=== PATIENT | female | born 1970 | race Two or more races ===

== ENCOUNTER → 2016-09-17 | Outpatient (CLI) | payer OTHER ==
[~2016-09-17] MED LIST: GABA600T PO; HYDR-3133 PO; INDO25CA PO; MECL-62 PO; NORT10CA PO; VALA500T PO
[2016-09-17 08:07] LABS: AUTOMATED NEUTROPHIL # 4.3 TH/MM3 (1.8-7.7); BASOPHIL % 0.8 % (0.0-2.0); EOSINOPHIL # 0.1 TH/MM3 (0-0.4); EOSINOPHIL % 1.1 % (0.0-4.0); HEMATOCRIT 38.6 % (35.0-46.0); HEMO FLAGS DIFF FINAL; LYMPH % 21.3 % (9.0-44.0); LYMPHOCYTE # 1.3 TH/MM3 (1.0-4.8); MEAN CORPUSCULAR HEMOGLOBIN 29.4 PG (27.0-34.0); MEAN CORPUSCULAR HGB CONC 33.8 % (32.0-36.0); MONO % 6.2 % (0.0-8.0); NEUT % 70.6 % (16.0-70.0); PLATELET COUNT 190 TH/MM3 (150-450); RED BLOOD COUNT 4.43 MIL/MM3 (4.00-5.30); RED CELL DISTRIBUTION WIDTH 14.5 % (11.6-17.2); WHITE BLOOD COUNT 6.1 TH/MM3 (4.0-11.0)
[2016-09-17 08:35] LABS: ALKALINE PHOSPHATASE 94 U/L (45-117); ALT (GPT) 185 U/L (10-53); ANION GAP 7 MEQ/L (5-15); AST (GOT) 122 U/L (15-37); BICARBONATE 28.6 MEQ/L (21.0-32.0); BLOOD UREA NITROGEN 17 MG/DL (7-18); CHLORIDE 103 MEQ/L (98-107); GLOMERULAR FILTRATION RATE 99 ML/MIN (>89); GLUCOSE,FASTING 88 MG/DL (74-99); POTASSIUM 3.4 MEQ/L (3.5-5.1); SODIUM (NA) 139 MEQ/L (136-145); TOTAL BILIRUBIN ADULT 0.4 MG/DL (0.2-1.0)
== END ==
LOC: CLAB 07:36
PROVIDERS: ATTEND Family Medicine
DX: M25.551 Pain in right hip (principal); R53.83 Other fatigue; H81.49 Vertigo of central origin, unspecified ear; H93.13 Tinnitus, bilateral; N83.201 Unspecified ovarian cyst, right side; R93.5 Abnormal findings on diagnostic imaging of other abdominal regions, including retroperitoneum; Z85.3 Personal history of malignant neoplasm of breast; Z68.22 Body mass index [BMI] 22.0-22.9, adult; Z13.220 Encounter for screening for lipoid disorders
CPT/HCPCS: 36415; 80053; 85025

== ENCOUNTER → 2016-09-20 | Outpatient (CLI) | payer OTHER ==
[2016-09-20 09:52] LABS: C. DIFF EPI 027 PRESUMPTIVE NEGATIVE (NEGATIVE); C. DIFF TOXIN PCR NEGATIVE (NEGATIVE)
[2016-09-21 13:43] LABS: FECAL FAT % FAT 16 % fat (< 20)
== END ==
LOC: CLAB 08:16
PROVIDERS: ATTEND Family Medicine
DX: O70.9 Perineal laceration during delivery, unspecified (principal); R10.13 Epigastric pain; K62.89 Other specified diseases of anus and rectum; R19.7 Diarrhea, unspecified; R15.9 Full incontinence of feces
CPT/HCPCS: 82710; 87338; 87493; 87506

== ENCOUNTER → 2016-10-22 | Outpatient (CLI) | payer OTHER ==
[2016-10-22 08:09] LABS: ALKALINE PHOSPHATASE 59 U/L (45-117); ALT (GPT) 16 U/L (10-53); ANION GAP 8 MEQ/L (5-15); AST (GOT) 10 U/L (15-37); BICARBONATE 25.1 MEQ/L (21.0-32.0); BLOOD UREA NITROGEN 17 MG/DL (7-18); CHLORIDE 105 MEQ/L (98-107); GLOMERULAR FILTRATION RATE 99 ML/MIN (>89); GLUCOSE,FASTING 90 MG/DL (74-99); POTASSIUM 3.8 MEQ/L (3.5-5.1); SODIUM (NA) 138 MEQ/L (136-145); TOTAL BILIRUBIN ADULT 0.3 MG/DL (0.2-1.0)
== END ==
LOC: CLAB 07:23
PROVIDERS: ATTEND Family Medicine
DX: R74.0 Nonspecific elevation of levels of transaminase and lactic acid dehydrogenase [LDH] (principal)
CPT/HCPCS: 36415; 80053

== ENCOUNTER → 2017-05-06 | Outpatient (CLI) | payer OTHER ==
[~2017-05-06] MED LIST changes: +ESTR42.5V VAGINAL; -HYDR-3133 PO; -INDO25CA PO; -NORT10CA PO
== END ==
LOC: CLAB 06:54
PROVIDERS: ATTEND Family Medicine
DX: R23.8 Other skin changes (principal)
CPT/HCPCS: 36415

== ENCOUNTER → 2017-12-20 | Outpatient (CLI) | payer OTHER ==
[~2017-12-20] MED LIST changes: +POTA10PO PO
[2017-12-20 14:01] LABS: BICARBONATE 27.5 MEQ/L (21.0-32.0); CALCIUM 8.8 MG/DL (8.5-10.1); CREATININE 0.64 MG/DL (0.50-1.00)
== END ==
LOC: CLAB 11-20 07:09
PROVIDERS: ATTEND Nurse Practitioner Family
DX: E87.6 Hypokalemia (principal)
CPT/HCPCS: 36415; 80048

== ENCOUNTER → 2017-12-30 | Outpatient (CLI) | payer OTHER ==
[2017-12-30 13:46] LABS: BICARBONATE 28.5 MEQ/L (21.0-32.0); CALCIUM 8.7 MG/DL (8.5-10.1); CREATININE 0.64 MG/DL (0.50-1.00)
== END ==
LOC: CLAB 13:05
PROVIDERS: ATTEND Family Medicine
DX: E87.6 Hypokalemia (principal)
CPT/HCPCS: 36415; 80048

== ENCOUNTER 2018-01-20 06:14 | Observation (INO) | payer OTHER ==
[2018-01-20] VITALS (9 sets, daily range): BP systolic 113–130; BP diastolic 61–86; PULSE 79–105; RESP 16–20; TEMP 98.1–98.8; O2SAT 97–100
[~2018-01-20] VITALS: Ht 157.5 cm; Wt 60.0 kg
[2018-01-20] MEDS ORDERED: POTA-163 PO (06:37)
[2018-01-20] MEDS ORDERED: MAGN200T PO (06:37)
[2018-01-20] MEDS ORDERED: ASPIRIN 81 MG CHEW TAB CHEW ONE (06:45)
[2018-01-20] MEDS ORDERED: SODIUM CHLORID 0.9% 500 ML INJ 500 ML IV ONE (06:45)
[2018-01-20] MEDS ORDERED: NITROGLYCERIN 0.4 MG SL 25 TABS/BTL SL ONE (06:45)
--- NOTE | 2018-01-20 06:45 | PD ---
HPI Chief Complaint: Chest Pain Time Seen by Provider: 06:34 Travel History International Travel<30 days: No Contact w/Intl Traveler<30days: No Traveled to known affect area: No History of Present Illness HPI The patient is a 47 year old female who presents to the [facility] emergency department with a history of a sensation of palpitations recurred again prior to arrival. The patient reports that she has a sensation of her heart skipping beats and beating fast. She reports having tingling sensations in her face. She reports having a breath. The patient was admitted to the hospital under the [facility] hospitalist service related to lightheaded sensation with similar symptoms on December 08. The patient was discharged home with a Holter monitor and follow-up with the mineral engineer. The patient had a normal TSH at that time. The patient had hypokalemia with a potassium of 2.9 and a magnesium of 1.7. The patient reports that her potassium was last checked a week ago and 3.3. She reports that she is on a potassium and magnesium supplement. She denies taking any aspirin daily. She did see a mineral engineer on Saturday and had an echo done. She reports that she is scheduled for a stress test later this week. She denies having any fevers or chills, cough or congestion, neck pain, abdominal pain, vomiting, diarrhea, urinary symptoms, or other neurologic symptoms. [facility] Past Medical History Narrative Medical The patient's past medical history is significant for breast cancer diagnosed in 2012 status post left mastectomy and chemotherapy, history of sciatica. Autoimmune Disease: No Blood Disorders: No Anxiety: No Depression: No Cancer: Yes Cardiovascular Problems: Yes (murmur) High Cholesterol: No Chemotherapy: Yes (LEFT BREAST CA) Diabetes: No Diminished Hearing: No Endocrine: No Genitourinary: No Headaches: Yes Immune Disorder: No Musculoskeletal: No Neurologic: Yes Psychiatric: No Reproductive: No Respiratory: No Radiation Therapy: No Thyroid Disease: No ?: Not Past Surgical History Narrative Surgical Past surgical history is significant for a tonsillectomy, bilateral tubal ligation, left mastectomy, cholecystectomy Abdominal Surgery: Yes (nancy) AICD: No Arteriovenous Shunt: No Gynecologic Surgery: Yes Insulin Pump: No Joint Replacement: No Mastectomy: Yes (LEFT) Oral Surgery: Yes Pacemaker: No Other Surgery: Yes (TONSILLECTOMY LAPAROSCOPIC TUBAL LIGATION) Social History Alcohol Use: No Tobacco Use: No Substance Use: No Allergies-Medications (Allergen,Severity, Reaction): Coded Allergies: amitriptyline (Verified Adverse Reaction, Intermediate, 01/20/18) Elevated Transaminases Reported Meds & Prescriptions Reported Meds & Active Scripts Active Estrace Vaginal (Estradiol) 0.01% Cream 1 Gm VAGINAL HS Reported Magnesium 200 Mg Tab 200 Mg PO DAILY Potassium Chloride ER (Potassium Chloride) 20 Meq Tab 20 Meq PO BID Valacyclovir (Valacyclovir HCl) 500 Mg Tab 500 Mg PO BID Gabapentin 600 Mg Tab 600 Mg PO HS Meclizine (Meclizine HCl) 25 Mg Tab 25 Mg PO TID PRN Review of Systems Except as stated in HPI: all other systems reviewed are Neg General / Constitutional: No: Fever Eyes: No: Visual changes HENT: No: Headaches, Congestion Cardiovascular: Positive: Chest Pain or Discomfort, Palpitations, Irregular Rhythm, Tachycardia, Dyspnea on exertion Respiratory: Positive: Shortness of Breath, No: Cough Gastrointestinal: No: Abdominal Pain Genitourinary: No: Dysuria Musculoskeletal: No: Pain Skin: No Rash Neurologic: No: Weakness Psychiatric: No: Depression Endocrine: No: Polydipsia Hematologic/Lymphatic: No: Easy Bruising Physical Exam Narrative General: The patient is a well-developed well-nourished female, anxious appearing on examination, hyperventilating. Head and Neck exam: Head is normocephalic atraumatic. Eyes: EOMI, pupils are equal round and reactive to light. Nose: Midline septum with pink mucous membranes Mouth: Dentition unremarkable. Moist mucus membranes. Posterior oropharynx is not erythematous. No tonsillar hypertrophy. Uvula midline. Airway patent. Neck: No palpable lymphadenopathy. No nuchal rigidity. No thyromegaly. Cardiovascular: Sinus tachycardia in the 1 teens without murmurs, gallops, or rubs. No pulse deficit to the extremities on simultaneous auscultation and palpation of her radial artery. Lungs: Clear to auscultation bilaterally. No wheezes, rhonchi, or rales. Abdomen: Soft, without tenderness to palpation in all 4 quadrants of the abdomen. No guarding, rebound, or rigidity. Normal bowel sounds are audible. No tenderness on palpation of McBurney's point. Negative Riley sign. Extremities: No clubbing, cyanosis, or edema. 2+ pulses in all 4 extremities. No calf tenderness on palpation. Back: No costovertebral angle tenderness to palpation. Neurologic Exam: Grossly nonfocal. Skin Exam: No rash noted. Intact skin that is warm and dry. Data Data Last Documented VS Vital Signs Date Time Temp Pulse Resp B/P (MAP) Pulse Ox O2 Delivery O2 Flow Rate FiO2 01/20/18 06:38 100 Room Air 01/20/18 06:24 98.8 105 20 Orders Orders Electrocardiogram (01/20/18 06:35) Complete Blood Count With Diff (01/20/18 06:35) Comprehensive Metabolic Panel (01/20/18 06:35) Creatine Kinase (Cpk) (01/20/18 06:35) Ckmb (Isoenzyme) Profile (01/20/18 06:35) Troponin I (01/20/18 06:35) B-Type Natriuretic Peptide (01/20/18 06:35) Prothrombin Time / Inr (Pt) (01/20/18 06:35) Act Partial Throm Time (Ptt) (01/20/18 06:35) Lipase (01/20/18 06:35) Magnesium (Mg) (01/20/18 06:35) Chest, Single Ap (01/20/18 06:35) Iv Access Insert/Monitor (01/20/18 06:35) Ecg Monitoring (01/20/18 06:35) Oximetry (01/20/18 06:35) Ed Urine Pregnancytest Poc (01/20/18 06:35) Aspirin Chew (Aspirin Chew) (01/20/18 06:45) Sodium Chlorid 0.9% 500 Ml Inj (Ns 500 M (01/20/18 06:45) Nitroglycerin Sl (Nitrostat Sl) (01/20/18 06:45) Labs Laboratory Tests Test 01/20/18 06:41 [facility] Medical Decision Making Medical Screen Exam Complete: Yes Emergency Medical Condition: Yes Medical Record Reviewed: Yes Differential Diagnosis Acute coronary syndrome, versus anxiety electrolyte derangements Narrative Course During the course of the patient's emergency department visit, the patient's history, examination, and differential diagnosis were reviewed with the patient. The patient was placed on a site monitor with oximetry and frequent blood pressure monitoring. The patient had IV access obtained and blood work sent for analysis. The patient had an EKG done on arrival that shows a sinus tachycardia heart rate of 1, QRS duration 70 ms, QTC [address] segment elevation. T waves are inverted in V1. Patient's electronic medical record was reviewed. The patient at the beginning of December underwent a CTA to rule out PE that was noted to be negative. The patient had a normal TSH at that time. The patient's magnesium level is 1.7, potassium 2.9. The patient's most recent repeat potassium at this facility was 3.3. The patient was initially provided aspirin 324 mg p.o. 1. The patient was given a normal saline 500 mL bolus 1. The patient's other laboratory studies and radiologic studies are pending at the conclusion of my shift. The patient's case will be checked out to the oncoming emergency physician. The patient will be dispositioned based on the conclusion of her workup. Diagnosis Primary Impression: Chest pain Qualified Codes: R07.2 - Precordial pain Additional Impressions: Shortness of breath Palpitations Karishma De La Torre MD January 20, 2018 06:45
--- NOTE | 2018-01-20 06:56 | RADRPT ---
EXAM DATE/TIME: 01/20/2018 06:41 [facility] COMPARISON: No previous studies available for comparison. INDICATIONS : Chest pain. MEDICAL HISTORY : Carcinoma, breast. SURGICAL HISTORY : Mastectomy, left. Tubal ligation. ENCOUNTER: Initial ACUITY: 1 day PAIN SCORE: 6/10 LOCATION: Bilateral chest FINDINGS: A single view of the chest demonstrates the lungs to be symmetrically aerated without evidence of mas s, infiltrate or effusion. The cardiomediastinal contours are unremarkable. Osseous structures are intact. CONCLUSION: No acute disease. Sujit Benjamin MD on January 20, 2018 at 6:53 Board Certified Radiologist. This report was verified electronically.
[2018-01-20 06:57] LABS: AUTOMATED NEUTROPHIL # 3.3 TH/MM3 (1.8-7.7); BASOPHIL % 0.8 % (0.0-2.0); EOSINOPHIL # 0.1 TH/MM3 (0-0.4); EOSINOPHIL % 1.2 % (0.0-4.0); HEMATOCRIT 39.9 % (35.0-46.0); HEMOGLOBIN 13.5 GM/DL (11.6-15.3); LYMPH % 34.2 % (9.0-44.0); MEAN CELL VOLUME 88.1 FL (80.0-100.0); MEAN CORPUSCULAR HEMOGLOBIN 29.8 PG (27.0-34.0); MEAN CORPUSCULAR HGB CONC 33.8 % (32.0-36.0); MONO % 7.7 % (0.0-8.0); MONOCYTE # 0.5 TH/MM3 (0-0.9); NEUT % 56.1 % (16.0-70.0); PLATELET COUNT 204 TH/MM3 (150-450); RED BLOOD COUNT 4.53 MIL/MM3 (4.00-5.30); RED CELL DISTRIBUTION WIDTH 13.7 % (11.6-17.2); WHITE BLOOD COUNT 5.8 TH/MM3 (4.0-11.0)
[2018-01-20 07:10] LABS: INTERNATIONAL NORMALIZED RATIO 1.1 RATIO; PROTHROMBIN TIME - PATIENT 10.7 SEC (9.8-11.6)
[2018-01-20 07:26] LABS: ALBUMIN 4.1 GM/DL (3.4-5.0); ALT (GPT) 17 U/L (10-53); AST (GOT) 17 U/L (15-37); BICARBONATE 24.7 MEQ/L (21.0-32.0); BLOOD UREA NITROGEN 17 MG/DL (7-18); CHLORIDE 106 MEQ/L (98-107); GLOMERULAR FILTRATION RATE 90 ML/MIN (>89); GLUCOSE,RANDOM 86 MG/DL (74-106); MAGNESIUM 1.9 MG/DL (1.5-2.5); SODIUM (NA) 140 MEQ/L (136-145)
[2018-01-20 07:30] LABS: ALKALINE PHOSPHATASE 57 U/L (45-117); TOTAL BILIRUBIN ADULT 0.4 MG/DL (0.2-1.0); TROPONIN I LESS THAN 0.02 NG/ML (0.02-0.05)
--- NOTE | 2018-01-20 08:08 | PD ---
Physical Exam Narrative Received signout from Dr. De La Torre for this patient. Patient presented to the emergency department complaining of chest pain and states that she is having sternal chest tightness that the 5 out of 10. She was given nitroglycerin which she said did not help the chest pain as well as aspirin. Her labs: cardiac enzymes are negative, potassium 3.3. Per Dr. De La Torre and disposition was to admit patient to chest pain center. I will give her 40 mEq of potassium p.o. and morphine 2 mg IV. Of note patient had a CTA to rule out PE in December and it was negative. I spoke to [place], the midlevel provider in the chest pain center, and she will be admitted to the chest pain center. Data Data Last Documented VS Vital Signs Date Time Temp Pulse Resp B/P (MAP) Pulse Ox O2 Delivery O2 Flow Rate FiO2 01/20/18 06:38 100 Room Air 01/20/18 06:24 98.8 105 20 Orders Orders Electrocardiogram (01/20/18 06:35) Complete Blood Count With Diff (01/20/18 06:35) Comprehensive Metabolic Panel (01/20/18 06:35) Creatine Kinase (Cpk) (01/20/18 06:35) Ckmb (Isoenzyme) Profile (01/20/18 06:35) Troponin I (01/20/18 06:35) B-Type Natriuretic Peptide (01/20/18 06:35) Prothrombin Time / Inr (Pt) (01/20/18 06:35) Act Partial Throm Time (Ptt) (01/20/18 06:35) Lipase (01/20/18 06:35) Magnesium (Mg) (01/20/18 06:35) Chest, Single Ap (01/20/18 06:35) Iv Access Insert/Monitor (01/20/18 06:35) Ecg Monitoring (01/20/18 06:35) Oximetry (01/20/18 06:35) Ed Urine Pregnancytest Poc (01/20/18 06:35) Aspirin Chew (Aspirin Chew) (01/20/18 06:45) Sodium Chlorid 0.9% 500 Ml Inj (Ns 500 M (01/20/18 06:45) Nitroglycerin Sl (Nitrostat Sl) (01/20/18 06:45) Potassium Chloride (Kcl) (01/20/18 08:15) Morphine Inj (Morphine Inj) (01/20/18 08:15) Admit Order (Ed Use Only) (01/20/18 08:12) Labs Laboratory Tests Test 01/20/18 06:41 White Blood Count 5.8 TH/MM3 Red Blood Count 4.53 MIL/MM3 Hemoglobin 13.5 GM/DL Hematocrit 39.9 % Mean Corpuscular Volume 88.1 FL Mean Corpuscular Hemoglobin 29.8 PG Mean Corpuscular Hemoglobin Concent 33.8 % Red Cell Distribution Width 13.7 % Platelet Count 204 TH/MM3 Mean Platelet Volume 11.0 FL Neutrophils (%) (Auto) 56.1 % Lymphocytes (%) (Auto) 34.2 % Monocytes (%) (Auto) 7.7 % Eosinophils (%) (Auto) 1.2 % Basophils (%) (Auto) 0.8 % Neutrophils # (Auto) 3.3 TH/MM3 Lymphocytes # (Auto) 2.0 TH/MM3 Monocytes # (Auto) 0.5 TH/MM3 Eosinophils # (Auto) 0.1 TH/MM3 Basophils # (Auto) 0.0 TH/MM3 CBC Comment DIFF FINAL Differential Comment Prothrombin Time 10.7 SEC Prothromb Time International Ratio 1.1 RATIO Activated Partial Thromboplast Time 25.6 SEC Blood Urea Nitrogen 17 MG/DL Creatinine 0.70 MG/DL Random Glucose 86 MG/DL Total Protein 8.0 GM/DL Albumin 4.1 GM/DL Calcium Level 9.0 MG/DL Magnesium Level 1.9 MG/DL Alkaline Phosphatase 57 U/L Aspartate Amino Transf (AST/SGOT) 17 U/L Alanine Aminotransferase (ALT/SGPT) 17 U/L Total Bilirubin 0.4 MG/DL Sodium Level 140 MEQ/L Potassium Level 3.3 MEQ/L Chloride Level 106 MEQ/L Carbon Dioxide Level 24.7 MEQ/L Anion Gap 9 MEQ/L Estimat Glomerular Filtration Rate 90 ML/MIN Total Creatine Kinase 94 U/L Troponin I LESS THAN 0.02 NG/ML B-Type Natriuretic Peptide 15 PG/ML Lipase 89 U/L MDM Supervised Visit with DONTA: No Diagnosis Primary Impression: Chest pain Qualified Codes: R07.2 - Precordial pain Additional Impressions: Shortness of breath Palpitations Admitting Information Admitting Physician Requests: Observation Condition: Stable Leia Mireles MD January 20, 2018 08:08
[2018-01-20] MEDS ORDERED: POTASSIUM CHLORIDE 20 MEQ CONTROLLED RELEASE TAB PO ONE (08:15)
[2018-01-20] MEDS ORDERED: MORPHINE SULFATE 2 MG/ML SYRINGE IV PUSH ONE (08:15)
[2018-01-20] MEDS ORDERED: NITROGLYCERIN 0.4 MG SL 25 TABS/BTL SL PRN (08:45)
[2018-01-20] MEDS ORDERED: ONDANSETRON ODT 4 MG TAB PO PRN (08:45)
[2018-01-20] MEDS ORDERED: SODIUM CHLORIDE 0.9% FLUSH 10 ML FLUSH IV FLUSH PRN (08:45)
[2018-01-20] MEDS: SODIUM CHLORIDE 0.9% FLUSH 10 ML FLUSH IV FLUSH SCH ×2 (09:09→21:58)
[2018-01-20] MEDS ORDERED: MORPHINE SULFATE 4 MG/ML INJ IV PUSH ONE (09:15)
--- NOTE | 2018-01-20 09:31 | HHI.HP ---
HPI Primary Care Physician Libra Ferraro MD Chief Complaint Chest pain History of Present Illness 47-year-old female with history of breast cancer presents the emergency room for further evaluation of palpitations and chest pain. Onset 530-600 am. Location substernal. Characterized as tightness. No radiation. Moderate in severity. Accompanying palpations and dizziness. Duration constant. No known precipitating or relieving factors. Similar chest discomfort over the last 5 nights reports awakening early each night with palpations and substernal chest tightness with duration 2 minutes. Yesterday experienced generalized malaise, palpations, and dizziness denying any company chest pain,while doing yard work. Reports sleeping well last evening. Last month admitted to hospitalist group for palpations and hypokalemia. Holter monitor completed and she followed up with a site interpreter in [place]. Saturday , January 17, completed echocardiogram, placed on a beta gavi (not started yet due to fact site interpreter office has not sent RX to pharmacy), and is scheduled for stress testing next week. Review of Systems General: No weakness, fever, chills, or recent illness. Generalized malaise yesterday while working in the yard, otherwise has been her general state of health. HEENT: No ALEGRIA, no nasal congestion or drainage, no dysphasia CV: Continues to have chest tightness with intermittent palpitations as stated above. No current palpitations. Dizziness improving. RESP: No SOB, cough, wheeze GI: Nausea improved. No vomiting, bowel changes, diarrhea, constipation, pain, or distention. : No dysuria, urgency, frequency EXT: No lower leg edema, no paraesthesias MS: Chronic right hip pain, no injury, or change in ROM NEURO: No difficulty with balance, LOC, motor/sensory deficits PSYCH: No anxiety or depression SKIN: No rashes, no concerning lesions Past Family Social History Allergies: Coded Allergies: amitriptyline (Verified Adverse Reaction, Intermediate, 01/20/18) Elevated Transaminases Past Medical History Breast cancer, chronic right hip pain Past Surgical History Left meniscectomy 2013, tubal ligation, cholecystectomy, endometrial ablation, rectal surgery Reported Medications Reported Meds & Active Scripts Active Estrace Vaginal (Estradiol) 0.01% Cream 1 Gm VAGINAL HS Reported Magnesium 200 Mg Tab 200 Mg PO DAILY Potassium Chloride ER (Potassium Chloride) 20 Meq Tab 20 Meq PO BID Valacyclovir (Valacyclovir HCl) 500 Mg Tab 500 Mg PO BID Gabapentin 600 Mg Tab 600 Mg PO HS Meclizine (Meclizine HCl) 25 Mg Tab 25 Mg PO TID PRN Recently prescribed metoprolol Saturday, has not yet started medication Active Ordered Medications Current Medications Medications (Trade) Dose Ordered Sig/Tay Route Start Time Stop Time Status Last Admin (NS Flush) 2 ml UNSCH PRN IV FLUSH 01/20/18 08:45 (NS Flush) 2 ml BID IV FLUSH 01/20/18 09:00 (Tylenol) 500 mg Q4H PRN PO 01/20/18 08:45 (Zofran Odt) 4 mg Q6H PRN PO 01/20/18 08:45 (Nitrostat Sl) 0.4 mg Q5M PRN SL 01/20/18 08:45 (Aspirin) 325 mg DAILY PO 01/21/18 09:00 (Morphine Inj) 2 mg ONCE ONCE IV PUSH 01/20/18 09:15 01/20/18 09:16 Family History Noncontributory for early onset cardiovascular disease Social History No known diabetes, hypertension, hyperlipidemia. Lifelong non-smoker. . 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 Endorses active lifestyle. Past cardiac testing 12/09/17 Holter Monitor-interpreted by Dr. Hess as normal sinus rhythm and normal sinus tach, sustained SVT (heart rate 167) Echocardiogram completed on January 17. Scheduled for stress testing later next week. Her site interpreter is Dr. Workman, in [place], [place] telephone [phone] fax number [phone] Physical Exam Vital Signs Vital Signs Date Time Temp Pulse Resp B/P (MAP) Pulse Ox O2 Delivery O2 Flow Rate FiO2 01/20/18 08:45 99 21 01/20/18 06:38 100 Room Air 01/20/18 06:24 98.8 105 20 130/86 (101) 100 Room Air 01/20/18 06:21 16 100 Room Air Physical Exam GENERAL: Alert WN, WD, NAD, pleasant, female HEAD: NC, AT EYES: Sclera clear, conjunctiva without injection CV: RRR, without murmur, rub, gallop, no JVD, S1-S2 no S3-S4. Chest wall tender with palpation. RESP: Clear lungs throughout bilateral, no crackles, wheeze, rhonchi, symmetrical chest rise, nonlabored, able to speak in full sentences ABD: Soft, NT, ND, no masses, positive bowel tones EXT: Pulses +2x4, trace dependent edema MS: Normal tone x4 extremities, nontender, no obvious deformities, full range of motion NEURO: CN II through CN XII grossly intact, motor strength 5/5 PSYCH: A+O x3, flat affect, appropriate speech, mood, insight and judgment SKIN: Normal turgor, normal texture, no lesions, no rashes, brisk cap refill, even hair distribution, surgical scar left mastectomy well-healed Laboratory Laboratory Tests Test 01/20/18 06:41 White Blood Count 5.8 Red Blood Count 4.53 Hemoglobin 13.5 Hematocrit 39.9 Mean Corpuscular Volume 88.1 Mean Corpuscular Hemoglobin 29.8 Mean Corpuscular Hemoglobin Concent 33.8 Red Cell Distribution Width 13.7 Platelet Count 204 Mean Platelet Volume 11.0 Neutrophils (%) (Auto) 56.1 Lymphocytes (%) (Auto) 34.2 Monocytes (%) (Auto) 7.7 Eosinophils (%) (Auto) 1.2 Basophils (%) (Auto) 0.8 Neutrophils # (Auto) 3.3 Lymphocytes # (Auto) 2.0 Monocytes # (Auto) 0.5 Eosinophils # (Auto) 0.1 Basophils # (Auto) 0.0 CBC Comment DIFF FINAL Differential Comment Prothrombin Time 10.7 Prothromb Time International Ratio 1.1 Activated Partial Thromboplast Time 25.6 Blood Urea Nitrogen 17 Creatinine 0.70 Random Glucose 86 Total Protein 8.0 Albumin 4.1 Calcium Level 9.0 Magnesium Level 1.9 Alkaline Phosphatase 57 Aspartate Amino Transf (AST/SGOT) 17 Alanine Aminotransferase (ALT/SGPT) 17 Total Bilirubin 0.4 Sodium Level 140 Potassium Level 3.3 Chloride Level 106 Carbon Dioxide Level 24.7 Anion Gap 9 Estimat Glomerular Filtration Rate 90 Total Creatine Kinase 94 Troponin I LESS THAN 0.02 B-Type Natriuretic Peptide 15 Lipase 89 Result Diagram: 01/20/18 0641 01/20/18 0641 Imaging Last 48 hours Impressions Chest X-Ray 01/20/18 0635 Signed Impressions: Service Date/Time: Saturday, January 20, 2018 06:41 - CONCLUSION: No acute disease. Sujit Benjamin MD Course EKG Normal sinus tachycardia cardiac, nonspecific ST change Caprini VTE Risk Assessment Caprini VTE Risk Assessment: No/Low Risk (score <= 1) Caprini Risk Assessment Model Point Value = 1 Point Value = 2 Point Value = 3 Point Value = 5 Age 41-60 Minor surgery BMI > 25 kg/m2 Swollen legs Varicose veins or History of unexplained or recurrent spontaneous Oral contraceptives or hormone replacement Sepsis (< 1 month) Serious lung disease, including pneumonia (< 1 month) Abnormal pulmonary function Acute myocardial infarction Congestive heart failure (< 1 month) History of inflammatory bowel disease Medical patient at bed rest Age 61-74 Arthroscopic surgery Major open surgery (> 45 min) Laparoscopic surgery (> 45 min) Malignancy Confined to bed (> 72 hours) Immobilizing plaster cast Central venous access Age >= 75 History of VTE Family history of VTE Factor V Leiden Prothrombin [id number] Lupus anticoagulant Anticardiolipin antibodies Elevated serum homocysteine Heparin-induced thrombocytopenia Other congenital or acquired thrombophilia Stroke (< 1 month) Elective arthroplasty Hip, pelvis, or leg fracture Acute spinal cord injury (< 1 month) Prophylaxis Regimen Total Risk Factor Score Risk Level Prophylaxis Regimen 0-1 Low Early ambulation 2 Moderate Order ONE of the following: *Sequential Compression Device (SCD) *Heparin 5000 units SQ BID 3-4 Higher Order ONE of the following medications: *Heparin 5000 units SQ TID *Enoxaparin/Lovenox 40 mg SQ daily (WT < 150 kg, CrCl > 30 mL/min) *Enoxaparin/Lovenox 30 mg SQ daily (WT < 150 kg, CrCl > 10-29 mL/min) *Enoxaparin/Lovenox 30 mg SQ BID (WT < 150 kg, CrCl > 30 mL/min) AND/OR *Sequential Compression Device (SCD) 5 or more Highest Order ONE of the following medications: *Heparin 5000 units SQ TID (Preferred with Epidurals) *Enoxaparin/Lovenox 40 mg SQ daily (WT < 150 kg, CrCl > 30 mL/min) *Enoxaparin/Lovenox 30 mg SQ daily (WT < 150 kg, CrCl > 10-29 mL/min) *Enoxaparin/Lovenox 30 mg SQ BID (WT < 150 kg, CrCl > 30 mL/min) AND *Sequential Compression Device (SCD) Assessment and Plan Assessment and Plan #1 Chest pain-admitted chest pain center. Begin ACS protocol with 3 sets of EKGs and cardiac enzymes. Will be seen and evaluated by Dr. Zaheer Grimaldo. Chest discomfort reproduced with palpation, Toradol 30 mg IV 1 dose. Continue to monitor on telemetry to identify any arrhythmias. Discussed with patient and in length. Both agreeable to plan of care. Call placed to patient' s site interpreter to make aware of patients arrival to chest pain center. Office requesting any additional cardiac testing completed to be faxed to their office. #2 Hypokalemia-40meq Kcl provided in ER. Continue home KCL supplementation. 1600 Dr. Grimaldo seen and evaluated patient. Monitor overnight. Nuclear treadmill testing in a.m. If unremarkable, plans to discharge home with follow with PCP and site interpreter. [place] Rosa January 20, 2018 09:31
[2018-01-20 10:50] LABS: TROPONIN I LESS THAN 0.02 NG/ML (0.02-0.05)
[2018-01-20] MEDS ORDERED: KETOROLAC TROMETHAMINE 30 MG/ML (IVP) VIAL IV PUSH ONE (11:00)
[2018-01-20 13:19] LABS: TROPONIN I LESS THAN 0.02 NG/ML (0.02-0.05)
--- NOTE | 2018-01-20 13:52 | EKG ---
Date Performed: 01/20/2018 Time Performed: 06:22:58 PTAGE: 47 years EKG: SINUS TACHYCARDIA NONSPECIFIC ST & T-WAVE ABNORMALITY ABNORMAL RHYTHM ECG PREVIOUS TRACING : 12/09/2017 14.01 Compared to previous tracing, the rate is faster and non-sp ecific st changes are now present DOCTOR: Zaheer Grimaldo Interpretating Date/Time 01/20/2018 13:51:37
--- NOTE | 2018-01-20 13:53 | EKG ---
Date Performed: 01/20/2018 Time Performed: 10:05:14 PTAGE: 47 years EKG: Sinus rhythm NONSPECIFIC ST-WAVE ABNORMALITY BORDERLINE ECG PREVIOUS TRACING : 01/20/2018 06.22 Since previous tracing, no significant change noted DOCTOR: Zaheer Grimaldo Interpretating Date/Time 01/20/2018 13:52:57
[2018-01-20] MEDS ORDERED: PILL SPLITTER OTHER PRN (17:00)
[2018-01-20] MEDS: ACETAMINOPHEN 500 MG CPLT PO PRN ×2 (17:44→21:58)
[2018-01-20] MEDS ORDERED: GABAPENTIN 300 MG CAP PO SCH (21:00)
[2018-01-20] MEDS: POTASSIUM CHLORIDE 20 MEQ CONTROLLED RELEASE TAB PO SCH (21:57)
[2018-01-21 00:19] VITALS: BP 101/62; PULSE 78; RESP 16; TEMP 97.8; O2SAT 96
[2018-01-21 00:35] VITALS: PULSE 79
[2018-01-21 04:10] VITALS: PULSE 80
[2018-01-21 04:14] VITALS: BP 101/60; PULSE 85; RESP 16; TEMP 97.7; O2SAT 98
[2018-01-21 07:13] VITALS: BP 114/68; PULSE 86; RESP 18; TEMP 98.1; O2SAT 100
--- NOTE | 2018-01-21 08:47 | EKG ---
Date Performed: 01/20/2018 Time Performed: 12:28:04 PTAGE: 47 years EKG: Sinus rhythm NORMAL ECG Since PREVIOUS TRACING , no significant change noted DOCTOR: Kristine Bernal Interpretating Date/Time 01/21/2018 08:46:27
[2018-01-21] MEDS ORDERED: MAGNESIUM OXIDE 400 MG TAB PO SCH (09:00)
[2018-01-21] MEDS ORDERED: ASPIRIN 325 MG TAB PO SCH (09:00)
[2018-01-21] MEDS: ACETAMINOPHEN 500 MG CPLT PO PRN (11:27)
[2018-01-21] MEDS: POTASSIUM CHLORIDE 20 MEQ CONTROLLED RELEASE TAB PO SCH (11:27)
[2018-01-21] MEDS: SODIUM CHLORIDE 0.9% FLUSH 10 ML FLUSH IV FLUSH SCH (11:28)
[2018-01-21 11:29] VITALS: BP 138/73; PULSE 94; RESP 18; TEMP 98.2; O2SAT 100
--- NOTE | 2018-01-21 11:40 | RADRPT ---
EXAM DATE/TIME: 01/21/2018 09:00 [facility] COMPARISON: No previous studies available for comparison. INDICATIONS : Mid chest pain for five days. Angina DOSE: 27.2 mCi Tc99m Myoview at stress 8.7 mCi Tc99m Myoview at rest REST HEART RATE: 139 BPM TARGET HEART RATE: 149 BPM MAX HEART RATE: 171 BPM REST BLOOD PRESSURE: 108/68 mmHg MAX BLOOD PRESSURE: 138/84 mmHg EJECTION FRACTION: 67% MEDICAL HISTORY : Carcinoma, breast. SURGICAL HISTORY : Tubal ligation. Cholecystectomy. ENCOUNTER: Initial ACUITY: 4 - 6 days PAIN SCALE: 6/10 LOCATION: Midsternal chest TECHNIQUE: The patient underwent upright treadmill exercise in the chest pain center. Continuous ECG tracing wa s monitored during stress. Gated SPECT imaging was performed after stress, and conventional SPECT im aging was performed at rest. The examination was performed on a SPECT/CT scanner, both attenuation-c orrected and non-corrected datasets were reviewed. FINDINGS: DISTRIBUTION: The maximum perfused segment at stress is in the anteroseptal wall. PERFUSION STUDY: The pattern of perfusion at stress is within normal limits. GATED STUDY: There is intact wall motion and thickening without hypokinetic or dyskinetic segments. CONCLUSION: 1. No reversible perfusion defect to suggest stress induced myocardial ischemia is identified. RISK CATEGORY: Low (<1% Annual Mortality Rate) Jarett Chappell MD on January 21, 2018 at 11:33 Board Certified Radiologist. This report was verified electronically.
--- NOTE | 2018-01-21 12:06 | HHI.DCPOC ---
Discharge Care Plan Diagnosis: (1) Chest pain (2) Palpitations (3) Hypokalemia Goals to Promote Your Health * To prevent worsening of your condition and complications * To maintain your health at the optimal level Directions to Meet Your Goals Take your medications as prescribed Follow your dietary instruction Follow activity as directed Keep your appointments as scheduled Take your immunizations and boosters as scheduled If your symptoms worsen call your PCP, if no PCP go to Urgent Care Center or Emergency Room Smoking is Dangerous to Your Health. Avoid second hand smoke Call the 24-hour hour crisis hotline for domestic abuse at Josh Zheng January 21, 2018 12:06
--- NOTE | 2018-01-21 16:57 | TR ---
Date Performed: 01/21/2018 Time Performed: 10:02:28 DOCTOR: Kristine Bernal DRUG LIST: CLINICAL HISTORY: REASON FOR TEST: REASON FOR ENDING: OBSERVATION: CONCLUSION: MATTIE PROTOCOL NUCLEAR ETT. NO CP. PT WAS SOB. Maximum IS=917 % Max HR Achieved=98.0 % Maximum QL=164/84 Total Exercise Time=2:00 COMMENTS: Non-specific changes throughout
== END 2018-01-21 15:22 | disposition home or self-care (01) ==
LOC: NEPE 06:14 → NEDA 08:13 → NEPFCDU 09:17
PROVIDERS: ADMIT Internal Medicine Cardiovascular Disease; ATTEND Internal Medicine Cardiovascular Disease
DX: R07.89 Other chest pain (principal); E87.6 Hypokalemia; R00.0 Tachycardia, unspecified; R06.02 Shortness of breath; R20.2 Paresthesia of skin; R00.2 Palpitations; R42 Dizziness and giddiness; M25.551 Pain in right hip; G89.29 Other chronic pain; Z79.899 Other long term (current) drug therapy; Z90.12 Acquired absence of left breast and nipple; Z85.3 Personal history of malignant neoplasm of breast
CPT/HCPCS: 71045; 78452; 80053; 82550; 83690; 83735; 83880; 84484; 84703; 85025; 85610; 85730; 93005; 93017; 96361; 96374; 96375; 99285; A9502; G0378; J1885; J2270; J7040

== ENCOUNTER 2018-01-31 14:03 | Day surgery (SDC) | payer OTHER ==
[~2018-01-31] VITALS: Ht 157.5 cm; Wt 60.3 kg
[~2018-01-31 14:03] MED LIST changes: +MAGN200T PO; +POTA-163 PO; -POTA10PO PO; -VALA500T PO
[2018-01-31 15:00] VITALS: BP 123/78; PULSE 92; RESP 16; TEMP 99.2; O2SAT 100
[2018-01-31] MEDS ORDERED: METO25TA3 PO (15:26)
[2018-01-31 15:30] LABS: AUTOMATED NEUTROPHIL # 5.2 TH/MM3 (1.8-7.7); BASOPHIL % 0.6 % (0.0-2.0); EOSINOPHIL % 0.3 % (0.0-4.0); HEMATOCRIT 37.4 % (35.0-46.0); HEMOGLOBIN 12.2 GM/DL (11.6-15.3); LYMPH % 18.3 % (9.0-44.0); LYMPHOCYTE # 1.3 TH/MM3 (1.0-4.8); MEAN CELL VOLUME 89.5 FL (80.0-100.0); MEAN CORPUSCULAR HEMOGLOBIN 29.3 PG (27.0-34.0); MEAN CORPUSCULAR HGB CONC 32.7 % (32.0-36.0); MEAN PLATELET VOLUME 10.9 FL (7.0-11.0); MONO % 6.1 % (0.0-8.0); MONOCYTE # 0.4 TH/MM3 (0-0.9); NEUT % 74.7 % (16.0-70.0); PLATELET COUNT 177 TH/MM3 (150-450); RED BLOOD COUNT 4.18 MIL/MM3 (4.00-5.30); RED CELL DISTRIBUTION WIDTH 13.5 % (11.6-17.2)
[2018-01-31] MEDS ORDERED: LORazepam 1 MG TAB SL SCH (15:30)
[2018-01-31] MEDS ORDERED: SODIUM CHLORID 0.9% 500 ML INJ 500 ML IV SCH (15:30)
[2018-01-31 15:39] LABS: PROTHROMBIN TIME - PATIENT 10.4 SEC (9.8-11.6)
[2018-01-31 15:45] LABS: BICARBONATE 24.6 MEQ/L (21.0-32.0); BLOOD UREA NITROGEN 13 MG/DL (7-18); CHLORIDE 105 MEQ/L (98-107); CREATININE 0.67 MG/DL (0.50-1.00); GLOMERULAR FILTRATION RATE 95 ML/MIN (>89); GLUCOSE,RANDOM 81 MG/DL (74-106); SODIUM (NA) 140 MEQ/L (136-145)
[2018-01-31] MEDS ORDERED: POVIDONE IODINE 5% (ANTISEPSIS KIT) 4 APPLICATIONS EACH NARE PRN (15:45)
[2018-01-31] MEDS ORDERED: SODIUM CHLORID 0.9% 500 ML IV PRN (15:45)
[2018-01-31] MEDS ORDERED: CHLORHEXIDINE GLUCONATE 2 % 1 PACK (2 CLOTHS) TOPICAL PRN (15:45)
[2018-01-31] MEDS ORDERED: METOPROLOL TARTRATE 25 MG TAB PO PRN (15:45)
[2018-01-31] MEDS ORDERED: LACTATED RINGER'S 1000 ML IV PRN (15:45)
[2018-01-31] MEDS ORDERED: PROPOFOL 200 MG/20 ML AMP ONE (16:47)
[2018-01-31] MEDS ORDERED: HEPARIN-NS/PF INJ 500 ML ONE (17:00)
[2018-01-31] MEDS ORDERED: ISOPROTERENOL INJ PREMIX 50 ML IV ONE (17:10)
[2018-01-31] MEDS ORDERED: ceFAZolin INJ 1,000 MG VIAL ONE (17:10)
[2018-01-31] MEDS ORDERED: CEPH-460 PO (17:57)
[2018-01-31] MEDS ORDERED: OXYC1TAB63 PO (17:57)
[2018-01-31] MEDS ORDERED: oxyCODONE/ACETAMINOPHEN 5 MG/325 MG TAB PO PRN ×2 (18:00)
[2018-01-31] MEDS ORDERED: LORazepam 2 MG/ML VIAL IV PUSH PRN (18:00)
[2018-01-31] MEDS ORDERED: LIDOCAINE HCL 1% 50 ML VIAL INFIL PRN (18:00)
[2018-01-31] MEDS ORDERED: ATROPINE SULFATE 1 MG/ML VIAL IV PUSH PRN (18:00)
[2018-01-31] MEDS ORDERED: BACITRACIN OINT 0.9 GM PKT TOP ONE (18:00)
[2018-01-31] MEDS ORDERED: SODIUM CHLOR 0.9% 250 ML INJ 250 ML IV PRN (18:00)
[2018-01-31] MEDS ORDERED: MIDAZOLAM HCL 2 MG/2 ML VIAL ONE (18:09)
--- NOTE | 2018-01-31 18:14 | CATHPROC ---
Patient Name: TEODORO AN Study #: [id number] Initial MD: Vladimir Reynoso Date of : 1970 Study Date: 01/31/2018 Cardiac Catheterization Report 01/31/2018 6:21:11 PM Financial #: [id number] 1 of 9 Patient Name: TEODORO AN Study #: [id number] Initial MD: Vladimir Reynoso Date of : 1970 Study Date: 01/31/2018 Entire Case Report Patient Information Patient Name TEODORO AN Date of 1970 Age 47 years Financial # [id number] Gender F AlternateID Lab Number 2 Room Number DC08 Height (in) 62.0 Height (cm) 157.5 BSA 1.61 Weight (lbs) 132.7 Weight (kg) 60.3 Patient Address/Phone Number Home Address [facility] Home Phone Number [phone] [facility] [id number] Study Information Study Number Admission Scheduled Start Study Start [id number] Jan 31 2018 2:03PM 01/31/2018 Jan 31 2018 4:28PM [place] Service Electrophysiology Study Admit Source Facility Department Other [facility] - Cigarette Making Machine Catcher Physician and Clinical Staff Initial Vladimir Butler Disability Examiner Isha Webb,RT(R) TECH2 Other Anesthesia, AUTOMOTIVE SERVICE PROFESSIONAL Other Harleen Giron RN Recorder Shelbi Salazar,MARCO Recorder Joy Rivera,MARCO Scrub Lisa Escobar RCIS TECH2 01/31/2018 6:21:11 PM Financial #: [id number] 2 of 9 Patient Name: TEODORO AN Study #: [id number] Initial MD: Vladimir Reynoso Date of : 1970 Study Date: 01/31/2018 Equipment Time Stone Repairer Description Size Mfg Part Number Used/Scraped [id number] 16:54 [employer] PACK, CCL CUSTOM * Used *[id number] 16:54 MEDLINE PACER VELAZQUEZ, LIMB * 2530 *[id number] Used [id number] 16:54 HU MEDICAL BLANKET,WARM AIR CCL * Used *[id number] 17:05 [employer] MED[employer] CATHETER, JSN, QUAD FR 5 Used *[id number] 17:05 [employer] MEDICAL CATHETER, JSN, QUAD FR 5 Used *[id number] 17:05 [employer] MEDICAL CATHETER, JSN, QUAD FR 5 Used *[id number] 17:05 [employer] MEDICAL CATHETER, JSN, QUAD FR 5 Used *[id number] 854140 17:05 [employer] SHEATH, EPS, FR5 FAST CATH FR 5 Used *[id number] 673920 17:05 [employer] MED[employer] SHEATH, EPS, FR5 FAST CATH FR 5 Used *[id number] [id number] 17:05 [employer] MED[employer] SHEATH, EPS, FR5 FAST CATH FR 5 Used *[id number] 058603 17:05 [employer] MED[employer] SHEATH, EPS, FR6 FAST CATH FR 6 Used *[id number] 049184 17:05 [employer] MED[employer] SHEATH, EPS, FR8 FAST CATH FR 8 Used *[id number] 17:57 [employer] LOOP RECORDERS Used *[id number] Insurance Information Insurance Payor Private Health Insurance Third Constitution Party Third Constitution Party Number [facility] History: Allergies Allergy Reaction amitriptyline Labs Hgb (g/dl) Hct (%) RBC (MIL/MM3) WBC (l/cumm) Platelets (thousands) 11.60-17.00 35.00-51.00 4.00-5.90 4.00-11.00 150.00-450.00 12.0 37 4 7 177 Glucose (mg/dl) BUN (mg/dl) Creatinine (mg/dl) BUN:Creatinine (1:x) 74.00-106.00 7.00-18.00 0.50-1.30 10.00-20.00 81 13 0.6 21.7 01/31/2018 6:21:11 PM Financial #: [id number] 3 of 9 Patient Name: TEODORO AN Study #: [id number] Initial MD: Vladimir Reynoso Date of : 1970 Study Date: 01/31/2018 Na (meq/l) K (meq/l) 136.00-145.00 3.50-5.10 140 3.5 INR (PTT:PT) 0.90-1.10 1 Medication Medication Total Dose (Bolus/Oral) Medication Total Dosage/Unit 1% XYLOCAINE 20 mL 2% XYLOCAINE 50 mL Medications (Bolus/Oral) Medication Time Given Dosage/Unit Administered By Reason 1% XYLOCAINE 01/31/2018 5:21:03 PM 20 mL Vladimir Reynoso 20 mL 1% XYLOCAINE given in lab by Vladimir Reynoso in Right Groin via Subcutaneous. Ordered by Marcus Reynoso. 2% XYLOCAINE 01/31/2018 5:48:17 PM 50 mL Vladimir Reynoso 50 mL 2% XYLOCAINE given in lab by Vladimir Reynoso in Left upper chest via Subcutaneous. Ordered by Vladimir Barba. Medication (Drip) Medication Time Given Dosage/Unit Concentration/Unit Diluent (ml) Solution ANCEF 01/31/2018 5:42:00 PM 2 g 2 g ANCEF given in lab by Anesthesia, AUTOMOTIVE SERVICE PROFESSIONAL via Peripheral IV. Ordered by Vladimir Reynoso. Reason: As pe r physicians verbal order. ISUPREL 01/31/2018 5:35:00 PM 4 mcg/min 1 mg 250 NaCl .9 4 mcg/min ISUPREL given in lab by Anesthesia, AUTOMOTIVE SERVICE PROFESSIONAL via Peripheral IV. Pump/Drip Flow = 60 ml/hr using NaCl .9 with a concentration of 1 mg in 250 ml. Ordered by Vladimir Reynoso. Reason: As per physicians verbal order. ISUPREL 01/31/2018 5:39:01 PM 0 mcg/min 1 mg 250 NaCl .9 0 mcg/min ISUPREL given in lab by Anesthesia, AUTOMOTIVE SERVICE PROFESSIONAL via Peripheral IV. Pump/Drip Flow = 0 ml/hr using NaCl .9 with a concentration of 1 mg in 250 ml. Ordered by Vladimir Reynoso. Reason: As per physicians verbal order. Discontinued at 01/31/2018 17:39 . 01/31/2018 6:21:11 PM Financial #: [id number] 4 of 9 Patient Name: TEODORO AN Study #: [id number] Initial MD: Vladimir Reynoso Date of : 1970 Study Date: 01/31/2018 Initial Case Assessment Cardiovascular HR NIBP 108 123/75 Edema Present Skin color Skin None Normal Warm Dry Circulatory - Right Pulses Dorsalis Pedis 2 Scale (0,1,2,3,4,d) Circulatory - Left Pulses Dorsalis Pedis 2 Scale (0,1,2,3,4,d) Circulatory - Lower Extremities Color Lower Right Color Lower Left Normal Normal Neurological State Oriented to time-place- Alert Moves all extremities person Respiration - General Respiration Rate SpO2 (%) (B/min) 18 100 01/31/2018 6:21:11 PM Financial #: [id number] 5 of 9 Patient Name: TEODORO AN Study #: [id number] Initial MD: Vladimir Reynoso Date of : 1970 Study Date: 01/31/2018 Final Case Assessment Cardiovascular HR NIBP 91 116/75 Edema Present Skin color Skin None Normal Warm Dry Circulatory - Right Pulses Dorsalis Pedis 2 Scale (0,1,2,3,4,d) Circulatory - Left Pulses Dorsalis Pedis 2 Scale (0,1,2,3,4,d) Circulatory - Lower Extremities Color Lower Right Color Lower Left Normal Normal Neurological State Drowsy Moves all extremities Respiration - General Respiration Rate SpO2 (%) O2 (lpm) (B/min) 16 100 4 Chronological Log Time Study Chronological Log 16:54:27 Patient arrived via Bed. 16:54:28 Patient Name, D.O.B, / Armband Verified By R.N. 16:54:29 Consent signed by the physician and the patient and verified by the Cigarette Making Machine Catcher staff. 16:54:30 Pre-op and post- op instructions given; patient acknowledges understanding of instructions. 16:54:31 Verbal Stimulation=2 Physical Stimulation=2 Airway=2 Respiration=2 TOTAL=8. (0=absent, 1=li mited, 2=present) 16:54:42 Anesthesia at bedside. Assumes care of patient. Debra 16:54:50 Patient has been NPO for More than 6Hrs. 16:54:51 Skin Breakdown- none per pt 16:55:01 Patient Warmer Placed on the Table. 01/31/2018 6:21:11 PM Financial #: [id number] 6 of 9 Patient Name: TEODORO AN Study #: [id number] Initial MD: Vladimir Reynoso Date of : 1970 Study Date: 01/31/2018 16:55:02 Disposable Defibrillator Pads Placed On Patient. 16:55:02 Kamala Prominences Protected 16:55:05 A # 20 IV was noted in the Forearm (right). Grade = 0 0.9ns kvo 16:55:06 A # 20 IV was noted in the Antecubital (right). Grade = 0 0.9ns kvo 16:55:48 History and physical on the chart. Assessment: Initial Case, KC=959 BPM, IUTE=367/75 mmhg, Edema=None, Color=Normal, Skin = Warm, Dry Right Pulses: Shakeel Ped=2 Left Pulses: Shakeel Ped=2 17:05:06 Lower Right Extremities: Color=Normal Lower Left Extremities: Color=Normal Neurological: State=Alert, Ox3, HOPKINS Respiration: Resp=18 B/min, BfN4=271 % 17:09:27 Table restraints applied according to hospital policy 17:12:30 Bilateral groins prepped with 2% chlorhexidine, and draped after a 3 min. waiting time. 17:18:00 MD present. Time Out. Correct patient, procedure, procedure equipment, site and side verified with physicia n present. Time 17:19:57 concurred by MD, individual staff and AUTOMOTIVE SERVICE PROFESSIONAL. Time Out #2 - Consents verified, patient in correct position, all results are labled and displa yed, safety precautions 17:20:25 taken, antibiotics administered. Time out concurred by MD, individual staff and AUTOMOTIVE SERVICE PROFESSIONAL in procedu re 17:20:28 Case Start 17:21:03 20 mL 1% XYLOCAINE given in lab by Vladimir Reynoso in Right Groin via Subcutaneous. Ordered b y Vladimir Reynoso. 17:21:55 Vascular access was obtained in the Fem Vein (right). 17:22:02 A SHEATH, EPS, FR5 FAST CATH FR 5 was advanced into the Fem Art (right) using the Modified Seldinger technique. 17:22:07 Vascular access was obtained in the Fem Vein (right). 17:22:19 A SHEATH, EPS, FR5 FAST CATH FR 5 was advanced into the Fem Art (right) using the Modified Seldinger technique. 17:23:08 Vascular access was obtained in the Fem Vein (right). 17:23:25 A SHEATH, EPS, FR6 FAST CATH FR 6 was advanced into the Fem Art (right) using the Modified Seldinger technique. 17:23:30 Vascular access was obtained in the Fem Vein (right). 17:23:44 A SHEATH, EPS, FR5 FAST CATH FR 5 was advanced into the Fem Art (right) using the Modified Seldinger technique. A CATHETER, JSN, QUAD FR 5 was advanced vis Fem Vein (right) and placed in the CS. Placement wa s visually 17:27:26 confirmed under fluoroscopy. A CATHETER, JSN, QUAD FR 5 was advanced vis Fem Vein (right) and placed in the HIS. Placement w as visually 17:27:36 confirmed under fluoroscopy. A CATHETER, JSN, QUAD FR 5 was advanced vis Fem Vein (right) and placed in the HRA. Placement w as visually 17:27:42 confirmed under fluoroscopy. A CATHETER, JSN, QUAD FR 5 was advanced vis Fem Vein (right) and placed in the RVA. Placement w as visually 17:28:02 confirmed under fluoroscopy. 17:30:06 EP study in progress 17:30:33 Incremental Atrial Pacing in progress 4 mcg/min ISUPREL given in lab by Anesthesia, AUTOMOTIVE SERVICE PROFESSIONAL via Peripheral IV. Pump/Drip Flow = 60 ml/hr using NaCl .9 with 17:35:00 a concentration of 1 mg in 250 ml. Ordered by Vladimir Reynoso. Reason: As per physicians verbal o rder. 0 mcg/min ISUPREL given in lab by Anesthesia, AUTOMOTIVE SERVICE PROFESSIONAL via Peripheral IV. Pump/Drip Flow = 0 ml/hr using NaCl .9 with a 17:39:01 concentration of 1 mg in 250 ml. Ordered by Vladimir Reynoso. Reason: As per physicians verbal order. Discontinued at 01/31/2018 17:39. 17:39:29 Incremental Atrial Pacing ended 01/31/2018 6:21:11 PM Financial #: [id number] 7 of 9 Patient Name: TEODORO AN Study #: [id number] Initial MD: Vladimir Reynoso Date of : 1970 Study Date: 01/31/2018 17:39:30 All Catheter(s) removed without difficulty. Sheaths left in place to heparinized saline. 17:40:54 Converting to loop recorder insertion 2 g ANCEF given in lab by Anesthesia, AUTOMOTIVE SERVICE PROFESSIONAL via Peripheral IV. Ordered by Vladimir Reynoso. Reason : As per physicians 17:42:00 verbal order. 17:48:17 50 mL 2% XYLOCAINE given in lab by Vladimir Reynoso in Left upper chest via Subcutaneous. Ord ered by Vladimir Reynoso. 17:51:17 A LOOP RECORDERS was inserted. 17:52:00 Sterile dressing applied to left chest site 17:52:05 Case End 17:55:32 Sheaths removed; pressure applied to access sites. Assessment: Final Case, HR=91 BPM, FBQU=975/75 mmhg, Edema=None, Color=Normal, Skin = Warm, Dr y Right Pulses: Shakeel Ped=2 Left Pulses: Shakeel Ped=2 18:00:06 Lower Right Extremities: Color=Normal Lower Left Extremities: Color=Normal Neurological: State=Drowsy, HOPKINS Respiration: Resp=16 B/min, VpH8=001 %, O2=4 lpm 18:08:28 DOCU called. Spoke to Carla 18:08:42 Bedside Report will be given. 18:08:50 Implantable Device card placed in patient's chart. 18:09:25 No case complications noted. 18:09:26 Cine recording checked. 18:10:48 EP Procedure was performed. 18:12:02 Implant Procedure was performed. Loop recorder 18:12:15 Patient moved to stretcher. 18:12:23 Defibrillator and ground pads removed. Skin intact. 18:15:29 Transported via bed to DOCU on supplemetal o2 @ 4l/min nc in stable condition with 2 RN,s accompanying pt. End Study - Contrast Media Used In Study Contrast Total Opened (mL) Total Used (mL) Total Wasted (mL) Unspecified 0 0 0 End Study - Maximum Contrast Load Max Contrast Load (mL) 502.7 End Study - Radiation Exposure Fluoro Time (minutes) 0.8 01/31/2018 6:21:11 PM Financial #: [id number] 8 of 9 Patient Name: TEODORO AN Study #: [id number] Initial MD: Vladimir Reynoso Date of : 1970 Study Date: 01/31/2018 End Study - Patient Disposition Complications Transferred To Telemetry Bed 01/31/2018 6:21:11 PM Financial #: [id number]
[2018-01-31] MEDS ORDERED: ONDANSETRON ODT 4 MG TAB PO PRN (18:15)
--- NOTE | 2018-01-31 18:45 | MA ---
cc: Vladimir Reynoso MD, Hanscy MD DATE: 01/31/2018 Electrophysiology study, CS cannulation, repeat electrophysiology study on Isuprel infusion, 3-D mapping for catheter placement. INDICATIONS: Mrs. Tejada is a 47-year-old female with recurrent episode of tachyarrhythmia referred for electrophysiology study and possible ablation, possible loop insertion. The risks, the nature and the benefits of the procedure were clearly said to her. Risks include esophageal perforation, aspiration, inguinal hematoma, cardiac perforation, stroke and even . She understood and agreed to proceed. PROCEDURE IN DETAIL: After written informed consent was obtained, the patient was brought to the EP lab where she was prepped and draped in the usual sterile fashion. Conscious sedation was initiated and maintained throughout the procedure by the anesthesiologist. Once sedation verified, the right inguinal area was anesthetized with 2% Xylocaine. Using modified Seldinger technique, the right femoral vein was cannulated on 4 occasional, 4 guidewires were advanced. Over the wire, a 3, 5 and a 6-Belgian Hemaquet were advanced. Then, under fluoroscopic guidance through the 5 and 6-Belgian Hemaquet, four 5-Belgian Devora curved quadripolar electrophysiology catheters were advanced and placed along the his, upper right atrium, coronary sinus and right ventricular apex. Pacing interval was measured. They were within normal limits. At this point, atrial pacing protocol was performed. Atrial pacing protocol consisted of incremental atrial pacing as well as program stimulation with 1 [address] train cycle length and up to 1 extrastimuli delivered. No tachyarrhythmia was induced. Then, atrial pacing protocol was performed at the upper right atrium as well as the coronary sinus. No tachyarrhythmia was induced. Then, ventricular pacing protocol was performed. There was VA conduction. Ventricular pacing protocol consisted of incremental pacing as well as program stimulation with a drive train cycle length and up to 1 extrastimuli delivered. No tachyarrhythmia was induced. Then, Isuprel infusion was initiated. Atrial and ventricular pacing protocol was repeated. Again, no tachyarrhythmia was induced. Post-isuprel no tachyarrhythmia was induced. At that point, the procedure was complete. All catheters were removed. Because the patient has recurrent tachyarrhythmia with episode of near syncope, a loop recorder will be inserted. No incident to report. The patient tolerated the procedure. Blood loss minimal. ELECTROCARDIOGRAM: At baseline, the patient was in sinus. Post-procedure was unchanged. BASIC INTERVAL: Basic cycle length was 840 milliseconds, AH was at 96 and HV was around 50 milliseconds. ATRIAL PACING PROTOCOL: Wenckebach of the node was 360. The ERP of the node was 600 at 120 milliseconds. No tachyarrhythmia was induced. VENTRICULAR PACING PROTOCOL: There was VA conduction. No tachyarrhythmia was induced. CONCLUSION: Negative electrophysiology study for supraventricular tachyarrhythmia COMMENT AND RECOMMENDATION: The patient is going to be kept on the table. A loop recorder will be inserted. MD YADIRA Castañeda/ , 05:58 PM , 06:45 PM
--- NOTE | 2018-02-01 14:17 | EKG ---
Date Performed: 01/31/2018 Time Performed: 15:40:00 PTAGE: 47 years EKG: Sinus rhythm Possible left atrial abnormality Borderline ECG Compared to PREVIOUS TRACING , the borderline atrial abnormality is new. PREVIOUS TRACIN01/20/2018 12.28 DOCTOR: Nic Rosas Interpretating Date/Time 02/01/2018 14:16:16
== END 2018-01-31 20:00 | disposition home or self-care (01) ==
LOC: HDOC 14:03 → HDIC 14:04 → HDOC 20:00
PROVIDERS: ATTEND Internal Medicine Interventional Cardiology
DX: R00.0 Tachycardia, unspecified (principal); Z79.899 Other long term (current) drug therapy
CPT/HCPCS: 00537; 33282; 80048; 84702; 85025; 85610; 85730; 86850; 86900; 86901; 93005; 93620; 93623; C1730; C1732; C1764; J0690; J1644; J2250; J3010; J7040